=== PATIENT | male | born 2000 | race Two or more races ===

== ENCOUNTER 2022-12-08 21:47 | Emergency (ER) | payer MEDICAID ==
[~2022-12-08] VITALS: Ht 162.6 cm; Wt 75.0 kg
[2022-12-08 21:50] VITALS: BP 146/82
== END 2022-12-08 22:57 | disposition home or self-care (01) ==
LOC: EMS 21:50
DX: B34.9 Viral infection, unspecified (principal); F10.90 Alcohol use, unspecified, uncomplicated
CPT/HCPCS: 99283